=== PATIENT | female | born 1990 | race American Indian/Alaskan Native ===

== ENCOUNTER 2017-05-30 08:16 | Emergency (ER) | payer OTHER, MEDICAID ==
[2017-05-30 08:16] VITALS: BMI 19.6
[2017-05-30] MEDS ORDERED: Naproxen 550 mg Tab PO STA (09:16)
[2017-05-30] MEDS ORDERED: Naproxen 550 mg Tab PO ONE (09:24)
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
[2017-05-30 12:43] VITALS: BP 111/75; PULSE 97; RESP 16; TEMP 98.4; O2SAT 98
== END 2017-05-30 09:51 | disposition home or self-care (01) ==
LOC: C.ER 08:16
DX: S16.1XXA Strain of muscle, fascia and tendon at neck level, initial encounter (principal); V49.88XA Car occupant (driver) (passenger) injured in other specified transport accidents, initial encounter; Y92.414 Local residential or business street as the place of occurrence of the external cause

== ENCOUNTER 2018-08-08 22:14 | Emergency (ER) | payer MEDICAID, OTHER ==
[2018-08-08 22:14] VITALS: BMI 19.6
[2018-08-08 22:26] VITALS: BP 108/68; PULSE 96; RESP 18; TEMP 98.5; O2SAT 100
--- NOTE | 2018-08-08 23:22 | C.PDOC ---
History Of Present Illness 27-year-old female presents to the ED for evaluation of lower back pain and shoulder pain which began today. Patient states she was trying to carry laundry when she fell down a flight of wooden stairs at home. Patient took an Ibuprofen at 1800 today, with minimal relief. 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 She denies head injury, LOC, nausea, vomiting, urinary/bowel incontinence, extremity numbness/weakness. Time Seen by Provider: 08/08/18 22:30 Chief Complaint (Nursing): Back Pain History Per: Patient History/Exam Limitations: no limitations Onset/Duration Of Symptoms: Hrs Current Symptoms Are (Timing): Still Present Quality Of Discomfort: "Pain" Previous Symptoms: Back Pain Associated Symptoms: denies: Incontinence, New Weakness, New Numbness Additional History Per: Patient Past Medical History Reviewed: Historical Data, Nursing Documentation, Vital Signs Vital Signs: Last Vital Signs Temp 98.5 F 08/08/18 22:23 Pulse 96 H 08/08/18 22:23 Resp 18 08/08/18 22:23 BP 108/68 08/08/18 22:23 Pulse Ox 100 08/08/18 23:55 - Medical History PMH: No Chronic Diseases Surgical History: No Surg Hx Family History: States: Unknown Family Hx - Social History Hx Tobacco Use: No Hx Alcohol Use: Yes Hx Substance Use: No - Immunization History Hx Tetanus Toxoid Vaccination: No Hx Influenza Vaccination: No Hx Pneumococcal Vaccination: No Review Of Systems Gastrointestinal: Negative for: Nausea, Vomiting Musculoskeletal: Positive for: Shoulder Pain, Back Pain Neurological: Negative for: Weakness, Numbness, Other (head injury, LOC ) Physical Exam - Physical Exam Appears: Non-toxic, No Acute Distress Skin: Normal Color, Warm, Dry, No Ecchymosis Head: Atraumatic, Normacephalic Eye(s): bilateral: Normal Inspection Oral Mucosa: Moist Neck: Supple Chest: Symmetrical, No Deformity, No Tenderness Back: Normal Inspection, No Vertebral Tenderness, No Decreased ROM, Paraspinal Tenderness (lumbar), No Other (bulging or coccyx tenderness ) Extremity: Normal ROM, No Tenderness, No Deformity, No Swelling Neurological/Psych: Oriented x3, Normal Speech, Normal Cognition Gait: Steady ED Course And Treatment O2 Sat by Pulse Oximetry: 100 (on RA) Pulse Ox Interpretation: Normal Medical Decision Making Medical Decision Making: Impression: 27 year old female with lower back pain Plan: * LS Spine AP/LAT XR * Flexeril PO * Tylenol PO Progress: LS Spine AP/Lat ordered, results are unremarkable. Flexeril PO and Tylenol PO given. On reassessment, patient is resting comfortably, showing no signs of distress and reports an improvement in her pain. Patient is ambulatory in the ED and is stable for discharge. Patient provided with a work note and is advised to follow up with orthopedist in pain persists for more than one week. Disposition Counseled Patient/Family Regarding: Diagnosis, Need For Followup, Rx Given - Disposition Referrals: Ermias Cedeño MD [Primary Care Provider] - Disposition: HOME/ ROUTINE Disposition Time: 23:19 Condition: STABLE Additional Instructions: Apply heat to area 15 minutes three times a day. Take Motrin as needed for pain every 6 hours, with food to not upset stomach. Take Flexeril for muscle pain and spasm, caution can cause drowsiness. Follow up with orthopedic if pain persists over one week Prescriptions: Cyclobenzaprine [Cyclobenzaprine HCl] 10 mg PO TID #30 tab Ibuprofen [Motrin] 600 mg PO Q8 #30 tab Instructions: Low Back Pain (DC) Forms: [facility] (Italian), Work Excuse - POA Present On Arrival: None - Clinical Impression Clinical Impression: Low back pain, Contusion of back - PA / FREE LANCE ARTIST / Resident Statement MD/DO has reviewed & agrees with the documentation as recorded. - Scribe Statement The provider has reviewed the documentation as recorded by the Scribe (Breann Castorena) All medical record entries made by the Scribe were at my direction and personally dictated by me. I have reviewed the chart and agree that the record accurately reflects my personal performance of the history, physical exam, medical decision making, and the department course for this patient. I have also personally directed, reviewed, and agree with the discharge instructions and disposition.
--- NOTE | 2018-08-09 09:27 | RAD ---
Date of service: 08/08/2018 PROCEDURE: Radiographs of the Lumbar Spine. HISTORY: back pain sp fall down steps COMPARISON: No prior. FINDINGS: BONES: Normal alignment. Vertebral bodies maintained in height. Mild dextroscoliosis. DISC SPACES: Unremarkable. OTHER FINDINGS: None. IMPRESSION: Mild dextroscoliosis. Otherwise unremarkable.
== END 2018-08-08 23:50 | disposition home or self-care (01) ==
LOC: C.ER 22:14 → SUPCPDRO 22:14 → C.ER 23:50
DX: S30.0XXA Contusion of lower back and pelvis, initial encounter (principal); W10.9XXA Fall (on) (from) unspecified stairs and steps, initial encounter; Y92.009 Unspecified place in unspecified non-institutional (private) residence as the place of occurrence of the external cause; M54.5 Low back pain